=== PATIENT | male | born 1980 | race Caucasian/White ===

== ENCOUNTER 2019-07-14 14:12 | Emergency (ER) | payer BC ==
[2019-07-14 14:36] VITALS: BP 158/98
--- NOTE | 2019-07-14 14:49 | UC ---
Abdominal Pain Male HPI - HPI Summary HPI Summary: 39 yo male presents with RLQ pain. He tells me that he ate lunch around noon today (approx 3 hours ago) and then felt RLQ pain that was cramp-like in nature rated 4-5/10. He had a BM and had no change. Pain is worse with movement. Since that time he states pain has mildly improved. He notes that he does a lot of heavy lifting at his job and is concerned for a hernia. He denies specific injury, nausea, vomiting, diarrhea, dysuria, back or flank pain. No fever or recent illness. No hx of abdominal surgeries. - History of Current Complaint Chief Complaint: UCAbdominalPain Stated Complaint: STOMACH PAIN Hx Obtained From: Patient Onset/Duration: Sudden Onset Severity Initially: Moderate Severity Currently: Mild Pain Intensity: 3 Pain Scale Used: 0-10 Numeric - Allergies/Home Medications Allergies/Adverse Reactions: Allergies Allergy/AdvReac Type Severity Reaction Status Date / Time No Known Allergies Allergy Verified 07/14/19 16:27 Home Medications: Home Medications NK [No Home Medications Reported] 07/14/19 [History Confirmed 07/14/19] PMH/Surg Hx/FS Hx/Imm Hx - Additional Past Medical History Additional PMH: None - Surgical History Surgical History: None - Family History Known Family History: Positive: None - Social History Occupation: Employed Full-time Lives: With Family Alcohol Use: Weekly Substance Use Type: Marijuana Substance Use Comment - Amount & Last Used: weekly Smoking Status (MU): Light Every Day Tobacco Smoker Review of Systems All Other Systems Reviewed And Are Negative: No Constitutional: Positive: Negative Skin: Positive: Negative Eyes: Positive: Negative ENT: Positive: Negative Respiratory: Positive: Negative Cardiovascular: Positive: Negative Gastrointestinal: Positive: Abdominal Pain Genitourinary: Positive: Negative Motor: Positive: Negative Neurovascular: Positive: Negative Musculoskeletal: Positive: Negative Neurological/Mental Status: Positive: Negative Psychological: Positive: Negative Physical Exam - Summary Physical Exam Summary: GENERAL: NAD. WDWN. No pain distress. SKIN: No rashes, sores, lesions, or open wounds. NECK: Supple. Nontender. No lymphadenopathy. CHEST: CTAB. No r/r/w. No accessory muscle use. Breathing comfortably and in no distress. CV: RRR. Pulses intact. Cap refill <2seconds ABDOMEN: Mild TTP RLQ at mcburney's point. No hernia or mass appreciated. Soft. No distention or guarding. No CVA tenderness. Bowel sounds present. NEgative psoas and rovsing's NEURO: Alert. PSYCH: Age appropriate behavior. Triage Information Reviewed: Yes Vital Signs: Initial Vital Signs Temp 98.6 F 07/14/19 14:30 Pulse 83 07/14/19 14:30 Resp 16 07/14/19 14:30 BP 158/98 07/14/19 14:30 Pulse Ox 99 07/14/19 14:30 Laboratory Tests 07/14/19 15:02 POC Urine Color Yellow POC Urine Clarity Clear POC Urine pH 5.5 POC Ur Specif Dora 1.025 POC Urine Protein Negative POC Ur Glucose (UA) Negative POC Urine Ketones Negative POC Urine Blood Trace-intact POC Urine Nitrite Negative POC Urine Bilirubin Negative POC Urine Urobilinogen 0.2 POC U Leukocyte Esteras Negative NK [No Home Medications Reported] 07/14/19 [History Confirmed 07/14/19] Vital Signs Reviewed: Yes Diagnostics - Radiology CT ab/pelv Radiology Interpretation Completed By: Radiologist Summary of Radiographic Findings: FINDINGS: LUNG BASES: The lung bases are clear. No pleural effusion is present. LIVER: The liver is normal in size. No significant focal abnormality is seen on this noncontrast study. GALLBLADDER: No calcified gallstones are seen. BILE DUCTS: No intra or extrahepatic ductal distention is seen. SPLEEN: The spleen is normal in size without significant focal abnormality. PANCREAS: The pancreas is normal in size. No ductal distention or calcifications are seen. ADRENAL GLANDS: The adrenal glands are normal in size. KIDNEYS: The kidneys are normal in size. No renal calculi or hydronephrosis is seen. AORTA: The aorta is normal in caliber without calcific plaque visualized. LYMPH NODES: No significantly enlarged lymph nodes are seen. BOWEL: The stomach, small and large bowel appear nondistended. Appendix is visualized and nondistended measuring up to 5.5 mm in diameter. There is mild interstitial stranding adjacent to the appendix possibly representing early appendicitis although nonspecific. There is no evidence for diverticulitis or colitis. PELVIC ORGANS: There is mild diffuse bladder wall thickening likely due to the nondistended state. The prostate gland appears to be within normal limits. PERITONEUM: No free intraperitoneal air or fluid is seen. BONES: No significant focal osseous abnormality is seen. IMPRESSION: THE APPENDIX IS NOT DISTENDED ALTHOUGH THERE IS VERY MILD ADJACENT INTERSTITIAL STRANDING WHICH MAY INDICATE EARLY APPENDICITIS ALTHOUGH NONSPECIFIC. Abd Pain Male Course/Dx - Course Course Of Treatment: UA and CT as above. He is afebrile and eating/drinking well without nausea or vomiting. I discussed the CT results with him and he does not want to go to the ER. I paged on-call Surgeon (Dr. Fernando) and did not receive a return call within ~ 20minutes and pt did not want to wait any longer. I made pt aware that his condition could worsen if this is appendicitis --- to include fever, vomiting, nausea, worsening pain, and potential rupture. He voiced understanding and prefers to go home to monitor his symptoms at this time and will go to the ED if his symptoms worsen or change. - Differential Dx/Clinical Impression Provider Diagnosis: RLQ abdominal pain Discharge ED - Sign-Out/Discharge Documenting (check all that apply): Patient Departure All imaging exams completed and their final reports reviewed: Yes - Discharge Plan Condition: Stable Disposition: HOME Patient Education Materials: Abdominal Pain (ED) Referrals: No Primary Care Phys,NOPCP [Primary Care Provider] - Additional Instructions: Your CT scan shows some inflammation around the area of your appendix. This is relatively a non-specific finding, but could be a sign of early appendicitis. I recommend that you go to the ER now for further evaluation of your symptoms. If you choose not to go to the ER - please monitor your symptoms and if you have worsening pain, develop a fever, nausea, or vomiting - please go to the ER immediately. - Billing Disposition and Condition Condition: STABLE Disposition: Home - Attestation Statements Provider Attestation: This patient was not seen by me. I was available for consult. Chart reviewed. jld Addendum entered and electronically signed by Nathen Cosme PA 07/14/19 16: 10: Addendum Addendum: Return call from Dr. Fernando after pt has left - made Dr. Fernando aware of pt visit here today, exam, CT results, and disposition. He will see pt in ED if pt goes to the ED and requires consult.
== END 2019-07-14 15:55 | disposition home or self-care (01) ==
LOC: UCEAST 14:12
DX: R10.31 Right lower quadrant pain (principal); F17.290 Nicotine dependence, other tobacco product, uncomplicated
CPT/HCPCS: 74176; 81003; 99202; G0463

== ENCOUNTER 2019-07-14 16:18 | Emergency (ER) | payer BC ==
[2019-07-14 16:56] LABS: ABS Basophils 0.1 10^3/ul (0-0.2); ABS Eosinophils 0.1 10^3/ul (0-0.6); ABS Lymphocytes 1.4 10^3/ul (1.0-4.8); ABS Monocytes 1.1 10^3/ul (0-0.8); ABS Neutrophils 9.8 10^3/ul (1.5-7.7); Eosinophil % 1.1 %; Hematocrit 42 % (42-52); Hemoglobin 14.6 g/dL (14.0-18.0); Lymphocyte % 11.3 %; Mean Corpuscular HGB Conc 35 g/dL (31-36); Mean Corpuscular Hemoglobin 31 pg (27-31); Mean Corpuscular Volume 91 fL (80-94); Mean Platelet Volume 8.1 fL (7.4-10.4); Nucleated Red Blood Cells % 0.1; Platelet Count 234 10^3/uL (150-450); Red Blood Count 4.64 10^6 /uL (4.18-5.48); Red Cell Distribution Width 13 % (10-15); White Blood Count 12.4 10^3/uL (3.5-10.8)
[2019-07-14 17:09] LABS: Albumin 4.9 g/dL (3.2-5.2); Calcium 9.6 mg/dL (8.6-10.3); Potassium 3.9 mmol/L (3.5-5.0); Total Bilirubin 0.4 mg/dL (0.2-1.0)
[2019-07-14 17:13] LABS: Urine Appearance Clear; Urine Bilirubin Negative (Negative); Urine Blood Negative (Negative); Urine Color Straw; Urine Glucose Negative (Negative); Urine Ketones Negative (Negative); Urine Nitrite Negative (Negative); Urine Protein Negative (Negative); Urine Specific Gravity 1.005 (1.010-1.030); Urine Urobilinogen Negative (Negative)
[2019-07-14 17:16] LABS: C Reactive Protein 2.53 mg/L (<8.01); EGFR African American 112.2 (>60); EGFR Non-African American 92.8 (>60); Globulin 2.5 g/dL (2-4); Total Protein 7.4 g/dL (6.4-8.9)
--- NOTE | 2019-07-14 17:18 | ED ---
GI/ HPI - HPI Summary HPI Summary: 39 year old male presents with right lower quadrant pain for the past couple hours. pain started after lunch. He states he has had an appetite. Denies any nausea vomiting. Pain is only in the right lower quadrant. pain has not moved anywhere. never had this pain before. No previous abd surgeries. No medical conditions. he took ibuprofen earlier which helped with the pain. had CT at urgent care which showed not distented appendix but mild stranding may indicate early appendicitis. no diarrhea or constipation. - History of Current Complaint Chief Complaint: EDAbdPain Time Seen by Provider: 07/14/19 16:37 Stated Complaint: ABD PAIN PER PT Pain Intensity: 3 - Allergy/Home Medications Allergies/Adverse Reactions: Allergies Allergy/AdvReac Type Severity Reaction Status Date / Time No Known Allergies Allergy Verified 07/14/19 16:27 PMH/Surg Hx/FS Hx/Imm Hx Endocrine/Hematology History: Denies: Hx Anticoagulant Therapy Respiratory History: Denies: Hx Asthma Infectious Disease History: No Infectious Disease History: Denies: Traveled Outside the in Last 30 Days - Family History Known Family History: Positive: None - Social History Alcohol Use: Weekly Substance Use Type: Reports: Marijuana Substance Use Comment - Amount & Last Used: weekly Smoking Status (MU): Light Every Day Tobacco Smoker Review of Systems Negative: Fever Negative: Chest Pain Negative: Shortness Of Breath Positive: Abdominal Pain. Negative: Vomiting, Diarrhea, Nausea All Other Systems Reviewed And Are Negative: Yes Physical Exam Triage Information Reviewed: Yes Vital Signs On Initial Exam: Initial Vitals Temp Pulse Resp BP Pulse Ox 98.1 F 89 19 164/96 98 07/14/19 16:25 07/14/19 16:25 07/14/19 16:25 07/14/19 16:25 07/14/19 16:25 Vital Signs Reviewed: Yes Appearance: Positive: Well-Appearing Skin: Positive: Warm, Dry Head/Face: Positive: Normal Head/Face Inspection Eyes: Positive: Normal, Conjunctiva Clear ENT: Positive: Pharynx normal Respiratory/Lung Sounds: Positive: Clear to Auscultation, Breath Sounds Present Cardiovascular: Positive: Normal, RRR Abdomen Description: Positive: Soft, McBurney's Point Tenderness, Other: - neg rovsings Bowel Sounds: Positive: Present Musculoskeletal: Positive: Normal Neurological: Positive: Normal Psychiatric: Positive: Normal Procedures - Sedation Patient Received Moderate/Deep Sedation with Procedure: No Diagnostics - Vital Signs Vital Signs Temp Pulse Resp BP Pulse Ox 07/14/19 16:25 98.1 F 89 19 164/96 98 - Laboratory Lab Results: Lab Results 07/14/19 07/14/19 07/14/19 Range/Units 16:48 16:48 16:48 WBC 12.4 H (3.5-10.8) 10^3/uL RBC 4.64 (4.18-5.48) 10^6 /uL Hgb 14.6 (14.0-18.0) g/dL Hct 42 (42-52) % MCV 91 (80-94) fL MCH 31 (27-31) pg MCHC 35 (31-36) g/dL RDW 13 (10-15) % Plt Count 234 (150-450) 10^3/uL MPV 8.1 (7.4-10.4) fL Neut % (Auto) 78.5 % Lymph % (Auto) 11.3 % Wolfe % (Auto) 8.5 % Eos % (Auto) 1.1 % Baso % (Auto) 0.6 % Absolute Neuts (auto) 9.8 H (1.5-7.7) 10^3/ul Absolute Lymphs (auto) 1.4 (1.0-4.8) 10^3/ul Absolute Monos (auto) 1.1 H (0-0.8) 10^3/ul Absolute Eos (auto) 0.1 (0-0.6) 10^3/ul Absolute Basos (auto) 0.1 (0-0.2) 10^3/ul Absolute Nucleated RBC 0.0 10^3/ul Nucleated RBC % 0.1 Sodium 136 (135-145) mmol/L Potassium 3.9 (3.5-5.0) mmol/L Chloride 105 (101-111) mmol/L Carbon Dioxide 25 (22-32) mmol/L Anion Gap 6 (2-11) mmol/L BUN 10 (6-24) mg/dL Creatinine 0.91 (0.67-1.17) mg/dL Est GFR ( Amer) 112.2 (>60) Est GFR (Non-Af Amer) 92.8 (>60) BUN/Creatinine Ratio 11.0 (8-20) Glucose 92 (70-100) mg/dL Lactic Acid 0.9 (0.5-2.0) mmol/L Calcium 9.6 (8.6-10.3) mg/dL Total Bilirubin 0.40 (0.2-1.0) mg/dL AST 27 (13-39) U/L ALT 31 (7-52) U/L Alkaline Phosphatase 70 (34-104) U/L C-Reactive Protein 2.53 (<8.01) mg/L Total Protein 7.4 (6.4-8.9) g/dL Albumin 4.9 (3.2-5.2) g/dL Globulin 2.5 (2-4) g/dL Albumin/Globulin Ratio 2.0 (1-3) Lipase 21 (11.0-82.0) U/L Urine Color Urine Appearance Urine pH (5-9) Ur Specific [place] (1.010-1.030) Urine Protein (Negative) Urine Ketones (Negative) Urine Blood (Negative) Urine Nitrate (Negative) Urine Bilirubin (Negative) Urine Urobilinogen (Negative) Ur Leukocyte Esterase (Negative) Urine Glucose (Negative) 07/14/19 Range/Units 16:54 WBC (3.5-10.8) 10^3/uL RBC (4.18-5.48) 10^6 /uL Hgb (14.0-18.0) g/dL Hct (42-52) % MCV (80-94) fL MCH (27-31) pg MCHC (31-36) g/dL RDW (10-15) % Plt Count (150-450) 10^3/uL MPV (7.4-10.4) fL Neut % (Auto) % Lymph % (Auto) % Wolfe % (Auto) % Eos % (Auto) % Baso % (Auto) % Absolute Neuts (auto) (1.5-7.7) 10^3/ul Absolute Lymphs (auto) (1.0-4.8) 10^3/ul Absolute Monos (auto) (0-0.8) 10^3/ul Absolute Eos (auto) (0-0.6) 10^3/ul Absolute Basos (auto) (0-0.2) 10^3/ul Absolute Nucleated RBC 10^3/ul Nucleated RBC % Sodium (135-145) mmol/L Potassium (3.5-5.0) mmol/L Chloride (101-111) mmol/L Carbon Dioxide (22-32) mmol/L Anion Gap (2-11) mmol/L BUN (6-24) mg/dL Creatinine (0.67-1.17) mg/dL Est GFR ( Amer) (>60) Est GFR (Non-Af Amer) (>60) BUN/Creatinine Ratio (8-20) Glucose (70-100) mg/dL Lactic Acid (0.5-2.0) mmol/L Calcium (8.6-10.3) mg/dL Total Bilirubin (0.2-1.0) mg/dL AST (13-39) U/L ALT (7-52) U/L Alkaline Phosphatase (34-104) U/L C-Reactive Protein (<8.01) mg/L Total Protein (6.4-8.9) g/dL Albumin (3.2-5.2) g/dL Globulin (2-4) g/dL Albumin/Globulin Ratio (1-3) Lipase (11.0-82.0) U/L Urine Color Straw Urine Appearance Clear Urine pH 5.0 (5-9) Ur Specific [place] 1.005 L (1.010-1.030) Urine Protein Negative (Negative) Urine Ketones Negative (Negative) Urine Blood Negative (Negative) Urine Nitrate Negative (Negative) Urine Bilirubin Negative (Negative) Urine Urobilinogen Negative (Negative) Ur Leukocyte Esterase Negative (Negative) Urine Glucose Negative (Negative) Result Diagrams: 07/14/19 16:48 07/14/19 16:48 Lab Statement: Any lab studies that have been ordered have been reviewed, and results considered in the medical decision making process. Re-Evaluation - Re-Evaluation First Eval Re-Evaluation Time: 17:25 Comment: 3 out of 10, still cleaner in RLQ GIGU Course/Dx - Course Course Of Treatment: 39 year old male presents with right lower quadrant pain for the past couple hours. pain started after lunch. He states he has had an appetite. Denies any nausea vomiting. Pain is only in the right lower quadrant. pain has not moved anywhere. never had this pain before. No previous abd surgeries. No medical conditions. he took ibuprofen earlier which helped with the pain. had CT at urgent care which showed not distented appendix but mild stranding may indicate early appendicitis. On exam tenderness at McBurney's point. Negative Rovsing's. wbc 12.4. crp elevated. dr lujan will see in ED. dr lujan saw patient and recommends discharge and should return if symptoms worsen. patient is comfortable with this plan. - Diagnoses Differential Diagnoses - Male: Appendicitis, Gastroenteritis (Bacterial), Gastroenteritis (Viral) Provider Diagnoses: Abdominal pain Discharge ED - Sign-Out/Discharge Documenting (check all that apply): Patient Departure - Discharge Plan Condition: Good Disposition: HOME Patient Education Materials: Abdominal Pain (ED) Referrals: Lon Lujan MD [Medical Doctor] - Additional Instructions: return to ED if symptoms worsening or develop fever or any new symptoms take ibuprofen every 6 hours for pain a referral was given for surgery office, call if symptoms worsen Follow up with primary within 5 days - Billing Disposition and Condition Condition: GOOD Disposition: Home
[2019-07-14 19:23] VITALS: BP 143/94
--- NOTE | 2019-07-14 20:48 | CONS ---
CC: [facility]; Primary Care Doctor * CONSULTATION REPORT: DATE OF CONSULT: 07/14/19 - EMERGENCY DEPT LOCATION: The patient is seen in the emergency room, room 3. HISTORY OF PRESENT ILLNESS: Mr. Hernandez is a 39-year-old gentleman, who came to my attention earlier today when he presented to urgent care with a complaint of sudden acute onset of right lower quadrant pain. Workup in the urgent care was a noncontrast study, which showed concern for mild inflammation at the site of the appendix, appendix otherwise appeared normal. The patient was told that he should probably go to the emergency room. It was not clear if this is what he was going to do according to the urgent care provider who reached out to me to let me know. The patient did indeed follow the directions and presented to the emergency room at [facility] with stated right lower quadrant pain and had an IV placed and labs drawn. The patient describes to me an acute onset earlier today when he was lifting items at his workplace where he normally lifts heavy items. It was only in the right lower quadrant, nonradiating. Pain comes and goes since the onset. It is described as sharp, worse with being examined, some relief with ibuprofen that the patient had taken. No narcotics had been given to the patient The patient denies any nausea or vomiting. No fevers or chills. The patient has good appetite. The patient denies any previous similar symptoms PAST MEDICAL HISTORY: None. PAST SURGICAL HISTORY: No abdominal surgeries. MEDICATIONS: None. ALLERGIES: None. FAMILY HISTORY: Noncontributory. No history of ulcerative colitis or Crohn's disease. 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 REVIEW OF SYSTEMS: Please see above. PHYSICAL EXAM: On focused physical exam, he is afebrile, vital signs are stable. Alert and oriented x3, in no apparent distress, nonjaundiced. Sclerae are anicteric. Abdomen is soft, obese, tender only on a very deep palpation just inferior to McBurney's point. No overlying skin changes. No hernias in the groin or umbilicus are noted. Negative psoas sign. Negative Rovsing sign. DIAGNOSTIC STUDIES/LAB DATA: Labs show white count 12.4. CRP within normal limits as his LFTs and metabolic panel. Urinalysis normal. A CAT scan from earlier today noncontrast was reviewed. I could not see any significant inflammatory changes in the right lower quadrant. I could not appreciate the appendix. No hernias were identified. IMPRESSION: Abdominal pain, possibly secondary to lifting. Differential diagnosis does include gastroenteritis and possibly appendicitis, although unlikely. I discussed the patient's diagnosis of abdominal pain is unlikely appendicitis in this case. We talked about a workup that would include a contrast study CT scan that would be better to delineate this. My recommendation, however, was for watchful waiting and return to emergency room or contact our office should this persist. I have asked him to eat and take ibuprofen. If the pain continues into tomorrow, to not eat or drink anything, to contact our offices, number was given through the emergency department. The patient was okay with this plan. His questions were answered. The patient did inquire about antibiotics. These were not recommended given the fact that I do not believe the patient is suffering with acute appendicitis at this time. [id number]/CPS #: [id number] MTDD
== END 2019-07-14 19:22 | disposition home or self-care (01) ==
LOC: ED 16:18
DX: R10.31 Right lower quadrant pain (principal); F17.210 Nicotine dependence, cigarettes, uncomplicated
CPT/HCPCS: 36415; 80053; 81003; 83605; 83690; 85025; 86140; 99282